=== PATIENT | male | born 1995 | race Caucasian/White ===

== ENCOUNTER 2017-10-26 08:11 | Outpatient (CLI) | payer OTHER ==
--- NOTE | 2017-10-26 09:56 | MRI ---
MRI THORACIC SPINE WITHOUT CONTRAST: History: Back pain. FINDINGS: The vertebral body heights and alignment are maintained. Intervertebral disc heights and signal are m aintained. There are small posterior disc protrusions at T4-5 and T5-6 levels with effacement of the anterior thecal sac and abutment of the anterior spinal cord. The thoracic spinal cord demonstrates n ormal course, caliber, and signal. No significant central canal stenosis or neural foraminal stenosis is seen. IMPRESSION: Small disc protrusions at T4-5 and T5-6 levels. POS: [facility]LES
--- NOTE | 2017-10-26 09:58 | MRI ---
MRI LUMBAR SPINE NONCONTRAST: History: Low back pain. FINDINGS: The conus medullaris has a normal appearance. Vertebral body height and alignment are maintained. Bon e marrow signal is within normal limits. Minimal fluid is associated with the facets at the L3-4 level. The central canal and neural foramina are patent. There is partial desiccation of the disc at the L4- 5 level with minimal disc bulge. No effect upon the thecal sac is evident. IMPRESSION: 1. No significant abnormalities are demonstrated to explain back pain. POS: CHARLES
== END 2017-10-26 08:12 | disposition home or self-care (01) ==
LOC: TBSIIMAG 08:11
PROVIDERS: ATTEND Specialist
DX: M54.5 Low back pain (principal); M51.24 Other intervertebral disc displacement, thoracic region
CPT/HCPCS: 72146; 72148